=== PATIENT | male | born 1980 | race Caucasian/White ===

== ENCOUNTER 2020-09-10 22:17 | Inpatient (IN) | payer OTHER, SELFPAY ==
[2020-09-10 22:33] VITALS: BP 140/82; PULSE 61; RESP 14; TEMP 36.3; O2SAT 98; BMI 31.4
[2020-09-10 23:38] VITALS: BP 131/90; PULSE 77; RESP 18; TEMP 36.6; O2SAT 99
--- NOTE | 2020-09-10 23:55 | ED_ITS ---
HPI - Abdominal Pain General Chief Complaint: Abdominal Pain Stated Complaint: ?UTI Time Seen by Provider: 09/10/20 23:44 Source: patient Mode of arrival: ambulatory Limitations: no limitations History of Present Illness HPI narrative: 40 years old male history of kidney stones, presented today with right-sided abdominal pain for 1 day, no nausea no vomiting, patient describes the pain as constant pain in the right flank area with fluctuation right now pain is 8/10, pain reviewed Ca down to the right lower quadrant/right groin area, no other associated symptoms with the pain, nothing relieves the pain or make it better, nothing worsens the pain pain, describes the pain as a stabbing pain Related Data Home Medications Medication Instructions Recorded Confirmed No Known Home Meds 09/10/20 09/10/20 Allergies Allergy/AdvReac Type Severity Reaction Status Date / Time No Known Allergies Allergy Verified 09/10/20 23:35 [No Known Allergies*] Review of Systems Review of Systems All other systems are reviewed and are negative Constitutional: Reports as per HPI and Reports no additional constitutional complaints Eyes: Reports as per HPI and Reports no additional eye complaints Reports system reviewed and no additional complaints, except as documented Cardiovascular: Reports as per HPI and Reports no additional cardiovascular complaints Respiratory: Reports as per HPI and Reports no additional respiratory complaints Gastrointestinal: Reports as per HPI and Reports no additional gastrointestinal complaints Genitourinary: Reports no additional female genitourinary complaints Musculoskeletal: Reports no additional musculoskeletal complaints Skin/Breast: Reports system reviewed and no additional complaints, except as docu Psychiatric: Reports no additional psychiatric complaints Endocrine: Reports no additional endocrine complaints Hematologic/Lymphatic: Reports no additional hematologic/lymphatic complaints Allergic/Immunologic: Reports no additional allergic/immunologic complaints Reports system reviewed and no additional complaints, except as documented and Reports Abnormal speech present Physical Exam Vital Signs: Vital Signs: Last Vital Signs Temp 97.9 F 09/10/20 23:38 Pulse 77 09/10/20 23:38 Resp 18 09/11/20 00:17 BP 131/90 H 09/10/20 23:38 Pulse Ox 99 09/10/20 23:38 Body Mass Index 31.4 Vital signs have been reviewed as normal and appeared to be correct. Hypertensive. Heart rate normal. Respiration rate normal. Temperature normal. Oxygen saturation normal. Appearance: Alert. Oriented X3. No acute distress. Head: Normal external exam. Normocephalic. Atraumatic. No Robert signs noted. No raccoon eyes noted Eyes: PERRLA. EOMI. Conjunctiva and sclera normal. Eyelids normal. ENT: EAC normal. TM's Normal. Pharynx normal. Uvula midline. Moist mucous membranes. No trismus noted. No drooling noted. No muffled voice noted. Neck: Normal inspection. Neck supple. FROM. No adenopathy. Thyroid Normal. No meningeal signs. No neck mass noted. CVS: Normal heart rate and rhythm. Heart sound normal. No murmurs noted. Pulses normal throughout. Respiratory: No respiratory distress. Painless inspiration. Breath sounds normal. No wheezes/rales/rhonchi noted. Chest nontender. No accessory muscle usage noted or decreased air movement noted. Abdomen: Soft, tenderness to the right lower quadrant area, no rebound tenderness, no guarding. Bowel sounds normal in all 4 quadrants. No distention noted. No organomegaly noted. No visible injury noted. Back: Mild right CVA tenderness. Full range of motion noted. Skin: Skin warm and dry. Normal skin color. Normal skin turgor. No rashes/lesions/lacerations noted. Extremities: No lower extremity edema. Extremities exhibit normal range of motion. Extremities nontender. Neuro: Oriented X 3. No motor deficit. No sensory deficit. Reflexes normal. Course Course Course Narrative: Assessment and plan. 40-year-old male with history of kidney stone presented with right flank pain radiating to the right groin area, CT showed 5 mm obstructing stone in the distal right ureter with hydronephrosis, UA is showing mild infection, patient is not meeting criteria for sepsis, with leukocytosis of 18,000, patient will be given Levaquin for the infection. Patient do not meet criteria for severe sepsis. The case discussed with . MDM - Abdominal Pain Lab Data Result diagrams: 09/11/20 00:12 09/11/20 00:12 Labs: Lab Results 09/11/20 09/11/20 09/11/20 Range/Units 00:12 00:12 00:12 WBC 18.0 H (4.8-10.8) X10*3/uL RBC 4.85 (4.60-5.80) X10*6/uL Hgb 14.8 (14.0-18.0) g/dl Hct 42.4 (42-52) % MCV 87.4 (80-98) fL MCH 30.5 (27.0-33.0) pg MCHC 34.9 (31.0-36.0) g/dl RDW 12.4 (11.0-16.0) % Plt Count 296 (160-400) X10*3/uL MPV 8.7 L (9.4-12.4) fL Immature Gran % (Auto) 0.6 H (0.0-0.4) % Neut % (Auto) 81.4 H (45-73) % Lymph % (Auto) 13.0 L (20-40) % [place] % (Auto) 3.6 (2-11) % Eos % (Auto) 1.1 (0-4) % Baso % (Auto) 0.3 (0-2) % Lymph # (Auto) 2.3 (1.2-4.9) X10*3/uL [place] # (Auto) 0.6 (0.1-1.2) X10*3/uL Eos # (Auto) 0.2 (0.0-0.4) X10*3/uL Baso # (Auto) 0.1 (0.0-0.2) X10*3/uL Abs Immat Gran (auto) 0.11 H (0.00-0.03) X10*3/uL Absolute Neuts (auto) 14.7 H (2.0-8.3) X10*3/uL Absolute Nucleated RBC 0.000 (0.0-0.012) X10*3/uL Nucleated RBC % (auto) 0.0 (0.0-0.2) /100WBC Sodium 138 (135-145) mmol/L Potassium 4.4 (3.3-5.1) mmol/l Chloride 100 (96-108) mmol/L Carbon Dioxide 29 (22-29) mmol/L Anion Gap 13 (12-20) BUN 14 (9-16) mg/dL Creatinine 1.05 (0.5-1.4) mg/dL Estim Creat Clear Calc 103.9 Estimated GFR > 60 Random Glucose 143 H (60-115) mg/dL Calcium 9.3 (8.4-10.2) mg/dL Total Bilirubin 0.4 (0.0-1.0) mg/dL Direct Bilirubin 0.2 (0.0-0.5) mg/dL AST 21 (5-37) U/L ALT 23 (0-40) U/L Alkaline Phosphatase 91 (39-117) U/L Total Protein 7.7 (6.5-8.0) g/dL Albumin 5.0 (3.5-5.0) g/dL Lipase 15 (8-78) U/L Urine Color YELLOW Urine Appearance HAZY Urine pH 5.0 (5.0-8.0) Ur Specific [place] >= 1.030 H (1.005-1.025) Urine Protein TRACE (NEG-TRACE) MG/DL Urine Glucose (UA) NEG (NEG) MG/DL Urine Ketones NEG (NEG) MG/DL Urine Blood 3+ H (NEG) Urine Nitrite POS H (NEG) Ur Leukocyte Esterase NEG (NEG) Urine RBC 30-49 H (0) /HPF Urine WBC 10-14 H (0-4) /HPF Ur Squamous Epith Cells 1+ /LPF Calcium Oxalate Crystal 1+ /LPF Urine Bacteria 2+ /LPF Hyaline Casts 1-4 /LPF Granular Casts 1-4 /LPF Urine Mucus 2+ /LPF Discharge Plan Discharge Clinical Impression: Kidney stone on right side, Acute UTI, Leukocytosis Patient Disposition: Admitted As Inpatient Prescriptions: No Action No Known Home Meds RF: 0 PMFSH Past Medical History Medical History (Updated 09/11/20 @ 01:56 by Michael Lakhani MD) Dislocated shoulder Kidney calculi Social History Social History Alcohol intake: never Smoking Status: Current every day smoker Substance Use Type: Marijuana Substance Use Frequency: Daily Last Used Substance: Days (ago) Any prior treatment program specific to substance use: No Advance Directives: No Advance Directives Information Provided: No
--- NOTE | 2020-09-11 | CT_ITS ---
EXAMINATION: CT ABDOMEN AND PELVIS WITHOUT CONTRAST CLINICAL INFORMATION: Right-sided flank pain. COMPARISON: None. TECHNIQUE: Contiguous axial thin section helical images of the abdomen and pelvis were performed without oral or IV contrast. The data set was reformatted in the coronal and sagittal planes and reviewed on an independent workstation. DLP: 666 mGy-cm. FINDINGS: There is an 8 mm nodule within the right lung base within or adjacent to the right major fissure best demonstrated on image 24/818. The visualized lung bases are otherwise clear. The visualized portions of the heart are unremarkable. The liver is of normal size and attenuation without focal lesions nor intrahepatic biliary ductal dilation. A normal gallbladder is identified. There is no wall thickening or discernible pericholecystic fluid. The spleen, pancreas, adrenal glands are unremarkable. Both kidneys are of normal size and attenuation. There is right grade 2-3 hydroureteronephrosis secondary to an obstructive 5 mm right UVJ calculus. There is no abdominal free fluid. There is neither mesenteric nor retroperitoneal lymphadenopathy. There is diverticulosis without evidence of diverticulitis. Otherwise, unremarkable unopacified loops of small and large bowel are identified. A normal appendix is identified. There is no pelvic free fluid. The urinary bladder is unremarkable. There is neither pelvic nor inguinal lymphadenopathy. Bone windows: Neither sclerotic nor lytic bone lesions are identified. CT/CT abdomen pelvis wo con IMPRESSION: Right grade 2-3 hydroureteronephrosis secondary to a 5 mm obstructive right UVJ calculus. Diverticulosis without evidence of diverticulitis. 8 mm right lung base interfissural nodule. Various management parameters for solitary pulmonary nodules are in the literature. According to the Fleischner Society, recommendations for pulmonary nodules are as follows: Nodule size < or = to 4 mm in LOW RISK PATIENTS: No follow up needed. Nodule size < or = to 4 mm in HIGH RISK PATIENTS: Follow up CT at 12 months; if unchanged, no further follow up. Nodule size > 4-6 mm in LOW RISK PATIENTS: Follow up CT at 12 months; if unchanged, no further follow up. Nodule size > 4-6 mm in HIGH RISK PATIENTS: Initial follow up CT at 6-12 months, then at 18-24 months if no change. Nodule size > 6-8 mm in LOW RISK PATIENTS: Initial follow up CT at 6-12 months, then at 18-24 months if no change. Nodule size > 6-8 mm in HIGH RISK PATIENTS: Initial follow up CT at 3-6 months, then 9-12 months and 24 months if no change. Nodule size > 8 mm in LOW RISK PATIENTS: Follow up CT at around 3, 9, and 24 months, dynamic contrast-enhanced CT, PET, and/or biopsy. Nodule size > 8 mm in HIGH RISK PATIENTS: Same as for low-risk patients. Automated exposure control (Care Dose) Adjustment of the mA and/or kv according to patient size (this includes techniques or standardized protocols for targeted exams where dose is matched to indication / reason for exam; i.e. extremities or head).
[2020-09-11 00:17] VITALS: RESP 18
[2020-09-11] MEDS: HYDROmorphone HCl 1 MG/ML SYRINGE IVPUSH (00:17)
[2020-09-11] MEDS: 0.9 % Sodium Chloride 1,000 ML 999 ML IVCONT ×2 (00:17→03:19)
[2020-09-11] MEDS: Ketorolac Tromethamine 15 MG/ML VIAL IV ×2 (00:17→05:46)
[2020-09-11 00:23] LABS: Basophils Absolute Auto 0.1 X10*3/uL (0.0-0.2); Basophils Percent Auto 0.3 % (0-2); Eosinophils Absolute Auto 0.2 X10*3/uL (0.0-0.4); Eosinophils Percent Auto 1.1 % (0-4); Hematocrit 42.4 % (42-52); Hemoglobin 14.8 g/dl (14.0-18.0); Imm Gran Abs Auto 0.11 X10*3/uL (0.00-0.03); Imm Gran Pct Auto 0.6 % (0.0-0.4); Lymphocytes Absolute Auto 2.3 X10*3/uL (1.2-4.9); MANUAL DIFF FLAG NO; Mean Corpuscular HGB Conc 34.9 g/dl (31.0-36.0); Mean Corpuscular Hemoglobin 30.5 pg (27.0-33.0); Mean Corpuscular Volume 87.4 fL (80-98); Mean Platelet Volume 8.7 fL (9.4-12.4); Monocytes Absolute Auto 0.6 X10*3/uL (0.1-1.2); Monocytes Percent Auto 3.6 % (2-11); Neutrophils Absolute Auto 14.7 X10*3/uL (2.0-8.3); Neutrophils Percent Auto 81.4 % (45-73); Platelet Count 296 X10*3/uL (160-400); Red Blood Count 4.85 X10*6/uL (4.60-5.80); Red Cell Distribution Width 12.4 % (11.0-16.0)
[2020-09-11 00:36] LABS: Glucose Urine UA NEG (NEG); Leukocyte Esterase Urine NEG (NEG); Nitrite Urine POS (NEG); Specific Gravity - Urine >= 1.030 (1.005-1.025); Urine Blood 3+ (NEG); Urine Ketones NEG (NEG); Urine Protein TRACE MG/DL (NEG-TRACE)
[2020-09-11 00:42] LABS: Appearance Urine HAZY; Color Urine YELLOW
[2020-09-11 00:45] LABS: Alanine Aminotransferase 23 U/L (0-40); Alkaline Phosphatase 91 U/L (39-117); Anion Gap 13 (12-20); Aspartate Amino Transferase 21 U/L (5-37); Bilirubin Direct 0.2 mg/dL (0.0-0.5); Bilirubin Total 0.4 mg/dL (0.0-1.0); Blood Urea Nitrogen 14 mg/dL (9-16); Calcium 9.3 mg/dL (8.4-10.2); Carbon Dioxide 29 mmol/L (22-29); Chloride 100 mmol/L (96-108); Creatinine Clr Calc Pharmacy 103.9; Estimated Glomerular Filt Rate > 60; Glucose Random 143 mg/dL (60-115); Lipase 15 U/L (8-78); Potassium 4.4 mmol/l (3.3-5.1); Sodium 138 mmol/L (135-145); Total Protein 7.7 g/dL (6.5-8.0)
[2020-09-11 00:49] LABS: RBC Urine 30-49 /HPF (0)
[2020-09-11 00:50] LABS: Bacteria Urine 2+ /LPF; Calcium Oxalate Crystals Urine 1+ /LPF; Mucus Urine 2+ /LPF; Squamous Epithelial Cell Urine 1+ /LPF
[2020-09-11 02:00] VITALS: BP 122/72; PULSE 98; RESP 18; O2SAT 100
[2020-09-11 02:38] LABS: Lactic Acid 1.5 mmol/L (0.5-2.0)
[2020-09-11] MEDS: levoFLOXacin 750 MG TABLET PO (02:43)
[2020-09-11 02:53] LABS: COVID-19 Test Negative (Negative)
[2020-09-11] MEDS: cefTRIAXone sodium 1 GM in 0.9 % Sodium Chloride 50 ML IV (03:18)
[2020-09-11] MEDS: Tamsulosin HCL 0.4 MG CAPSULE 0.8 MG PO (03:19)
[2020-09-11 04:00] VITALS: BP 111/65; PULSE 72; RESP 18; TEMP 36.8; O2SAT 99
--- NOTE | 2020-09-11 05:51 | PM.IMHP ---
History of Present Illness Date of Service: 09/11/20 Chief Complaint: Kidney stones pain Id this is a 40-year-old male with past medical history of kidney stones who presents to the hospital with right abdominal pain radiating to the groin. Patient reports that his pain started earlier in the day, crampy, 10/10, associated with nausea, dysuria and urgency. Patient reports he has history of kidney stone and this feels similar. He has no pain on the left side. No fever or chills, no headache, change in vision, chest pain, shortness of breath, no diarrhea constipation. His urinary symptoms also started about a day ago and that include dysuria, urgency. On arrival to the ED vitals are significant for temp of 97.4?, pulse rate of 61, respiratory rate of 14, blood pressure 140/82, oxygen satting 98% on room air Labs are significant for WBC count of 18.0, hemoglobin of 14.8, hematocrit 42.4, CMP shows sodium of 138, potassium 4.4 otherwise unremarkable. UA is positive for nitrites, and WBC. Patient's abdominal/pelvic CT shows right grade 2-3 hydroureteronephrosis secondary to a 5 mm obstructive right UVJ calculus. 8 mm right lung base enter fistular nodule that will need to be followed of in the near future Past medical history: Kidney stones Past surgical history: Kidney stone removal, shoulder surgery Family history: Alcohol in father Social history: Comes from home, smokes about 1 pack per day, denies alcohol or illicit drugs Review of Systems Review of Systems: Yes all other systems are reviewed and are negative [facility] Medical History Dislocated shoulder Kidney calculi Social History Alcohol intake: never Smoking Status: Current every day smoker Substance Use Type: Marijuana Substance Use Frequency: Daily Last Used Substance: Days (ago) Any prior treatment program specific to substance use: No Advance Directives: No Advance Directives Information Provided: No Meds Allergies Allergy/AdvReac Type Severity Reaction Status Date / Time No Known Allergies Allergy Verified 09/10/20 23:35 [No Known Allergies*] Home Medications Medication Instructions Recorded Confirmed Type No Known Home Meds 09/10/20 09/10/20 History Physical Exam Vital Signs and Narrative: Vital Signs: Last Vital Signs Temp 98.2 F 09/11/20 04:00 Pulse 72 09/11/20 04:00 Resp 18 09/11/20 04:00 BP 111/65 09/11/20 04:00 Pulse Ox 99 09/11/20 04:00 Body Mass Index 31.4 Const: General: cooperative and no acute distress Orientation/consciousness: patient oriented x3 Eyes: General: appearance normal, both eyes and all related structures Resp: Effort & Inspection: normal respiratory effort and able to speak in complete sentences Cardio: Rate: regular rate Rhythm: regular rhythm GI: Palpation (GI): Soft to palpation Auscultation: normal bowel sounds : Other: Right CVA tenderness Skin: General skin exam: no rashes or lesions noted Neuro: General: patient oriented x3 Cognition (Neuro): normal cognition Extrem: General: Yes normal to inspection and Yes no pedal edema Results Labs CBC and Chem 7: 09/11/20 00:12 09/11/20 00:12 Labs: Laboratory Results - last 24 hr 09/11/20 09/11/20 09/11/20 00:12 00:12 00:12 MCV 87.4 MCH 30.5 MCHC 34.9 RDW 12.4 Plt Count 296 MPV 8.7 L Immature Gran % (Auto) 0.6 H Neut % (Auto) 81.4 H Lymph % (Auto) 13.0 L [place] % (Auto) 3.6 Eos % (Auto) 1.1 Baso % (Auto) 0.3 Lymph # (Auto) 2.3 [place] # (Auto) 0.6 Eos # (Auto) 0.2 Baso # (Auto) 0.1 Abs Immat Gran (auto) 0.11 H Absolute Neuts (auto) 14.7 H Absolute Nucleated RBC 0.000 Nucleated RBC % (auto) 0.0 Anion Gap 13 Estim Creat Clear Calc 103.9 Estimated GFR > 60 Random Glucose 143 H Lactic Acid Calcium 9.3 Total Bilirubin 0.4 Direct Bilirubin 0.2 AST 21 ALT 23 Alkaline Phosphatase 91 Total Protein 7.7 Albumin 5.0 Lipase 15 Urine Color YELLOW Urine Appearance HAZY Urine pH 5.0 Ur Specific [place] >= 1.030 H Urine Protein TRACE Urine Glucose (UA) NEG Urine Ketones NEG Urine Blood 3+ H Urine Nitrite POS H Ur Leukocyte Esterase NEG Urine RBC 30-49 H Urine WBC 10-14 H Ur Squamous Epith Cells 1+ Calcium Oxalate Crystal 1+ Urine Bacteria 2+ Hyaline Casts 1-4 Granular Casts 1-4 Urine Mucus 2+ COVID-19 (ZIGGY) COVID-19 Clin Com 09/11/20 09/11/20 02:09 02:09 MCV MCH MCHC RDW Plt Count MPV Immature Gran % (Auto) Neut % (Auto) Lymph % (Auto) [place] % (Auto) Eos % (Auto) Baso % (Auto) Lymph # (Auto) [place] # (Auto) Eos # (Auto) Baso # (Auto) Abs Immat Gran (auto) Absolute Neuts (auto) Absolute Nucleated RBC Nucleated RBC % (auto) Anion Gap Estim Creat Clear Calc Estimated GFR Random Glucose Lactic Acid 1.5 Calcium Total Bilirubin Direct Bilirubin AST ALT Alkaline Phosphatase Total Protein Albumin Lipase Urine Color Urine Appearance Urine pH Ur Specific [place] Urine Protein Urine Glucose (UA) Urine Ketones Urine Blood Urine Nitrite Ur Leukocyte Esterase Urine RBC Urine WBC Ur Squamous Epith Cells Calcium Oxalate Crystal Urine Bacteria Hyaline Casts Granular Casts Urine Mucus COVID-19 (ZIGGY) Negative COVID-19 Clin Com See Note Imaging Radiologist's Impressions: Impressions Abdomen/Pelvis CT 09/11/20 00:00 IMPRESSION: Right grade 2-3 hydroureteronephrosis secondary to a 5 mm obstructive right UVJ calculus. Diverticulosis without evidence of diverticulitis. 8 mm right lung base interfissural nodule. Various management parameters for solitary pulmonary nodules are in the literature. According to the Fleischner Society, recommendations for pulmonary nodules are as follows: Nodule size < or = to 4 mm in LOW RISK PATIENTS: No follow up needed. Nodule size < or = to 4 mm in HIGH RISK PATIENTS: Follow up CT at 12 months; if unchanged, no further follow up. Nodule size > 4-6 mm in LOW RISK PATIENTS: Follow up CT at 12 months; if unchanged, no further follow up. Nodule size > 4-6 mm in HIGH RISK PATIENTS: Initial follow up CT at 6-12 months, then at 18-24 months if no change. Nodule size > 6-8 mm in LOW RISK PATIENTS: Initial follow up CT at 6-12 months, then at 18-24 months if no change. Nodule size > 6-8 mm in HIGH RISK PATIENTS: Initial follow up CT at 3-6 months, then 9-12 months and 24 months if no change. Nodule size > 8 mm in LOW RISK PATIENTS: Follow up CT at around 3, 9, and 24 months, dynamic contrast-enhanced CT, PET, and/or biopsy. Nodule size > 8 mm in HIGH RISK PATIENTS: Same as for low-risk patients. Automated exposure control (Care Dose) Adjustment of the mA and/or kv according to patient size (this includes techniques or standardized protocols for targeted exams where dose is matched to indication / reason for exam; i.e. extremities or head). Assessment and Plan (1) Kidney stone on right side: Status: Acute (2) Acute UTI: Status: Acute This is a 40-year-old male with past medical history of nephrolithiasis returned with the same on the right side. # right obstructive UVJ nephrolithiasis - will start IV fluids, urology is consulted and plans and possible intervention in a.m. - treat UTI - Pain management # UTI - has urgency, dysuria, UA is positiv for nitrites and WBC - will start ceftriaxone - follow blood and urine cultures # 8 mm lung nodule - patient is a heavy smoker for many years, and this nodule needs to be followed up within the next 3-6 months upon discharge DVT prophylaxis: Lovenox
[2020-09-11 08:10] VITALS: BP 116/62; PULSE 87; RESP 18; TEMP 36.7; O2SAT 96
[2020-09-11] MEDS: Enoxaparin Sodium 40 MG/0.4 ML SYRINGE SUBCUT (08:15)
[2020-09-11] MEDS: oxyCODONE HCl Immed Release 5 MG TABLET PO (08:16)
[2020-09-11] MEDS: 0.9 % Sodium Chloride Flush 3 ML SYRINGE IVFLUSH (08:16)
--- NOTE | 2020-09-11 09:55 | P.DS_ITS ---
DS: Providers Provider Date of admission: 09/11/20 02:21 Primary care physician: Unknown Physician Consults: 09/11/20 03:44 Consult to Urology Routine Consulting Provider: Abdelrahman Mitchell III Reason for consultation: nephrolithiasis Has provider been notified: Yes DS: Diagnosis Discharge Diagnosis (1) Kidney stone on right side: Status: Acute (2) Acute UTI: Status: Acute DS: Medications Discharge Medications Home Medications: Home Medications Medication Instructions Recorded Confirmed No Known Home Meds 09/10/20 09/10/20 Previous Rx's Medication Instructions Recorded acetaminophen [Tylenol] 650 mg PO Q6H PRN #20 tab 09/11/20 cefuroxime axetil 250 mg PO Q12H #14 tab 09/11/20 tamsulosin [Flomax] 0.4 mg PO DAILY #7 cap 09/11/20 DS: Summary Hospital Course Hospital Course: 40-year-old male with past medical history of kidney stones who presents to the hospital with right abdominal pain radiating to the groin. Patient reports that his pain started earlier in the day, crampy, 10/10, associated with nausea, dysuria and urgency. Patient reports he has history of kidney stone and this feels similar. He has no pain on the left side. No fever or chills, no headache, change in vision, chest pain, shortness of breath, no diarrhea constipation. His urinary symptoms also started about a day ago and that include dysuria, urgency. On arrival to the ED vitals are significant for temp of 97.4?, pulse rate of 61, respiratory rate of 14, blood pressure 140/82, oxygen satting 98% on room air Labs are significant for WBC count of 18.0, hemoglobin of 14.8, hematocrit 42.4, CMP shows sodium of 138, potassium 4.4 otherwise unremarkable. UA is positive for nitrites, and WBC. Patient's abdominal/pelvic CT shows right grade 2-3 hydroureteronephrosis secondary to a 5 mm obstructive right UVJ calculus. 8 mm right lung base enter fistular nodule that will need to be followed of in the near future Past medical history: Kidney stones. Hospital Course problem palma section:Patient given nephrolithiasis as well as acute UTI, blood culture and urine cultures sent, patient was started on IV antibiotic and pain control, urology was consulted-but patient decided he wants to sign against medical advice risks of leaving against medical advise discussed with him in detail including sepsis, renal failure and even - he still wants to leave against medical advice. Staff was present during the co nversation. Antibiotic Ceftin and Flomax as well as pain medication prescription given. In addition patient was told to go to nearest emergency room for further management and also given the option to come back to nearest emergency room . Is alert oriented x3 and understands and still wants to leave AMA . Above management discussed with the patient in detail length she understand and in agreement with the above plan, time spent 50 minutes and 50% time spent on counseling. Significant findings: As above. Procedures performed: None. Treatment and response: As above. Complications: None. Time Spent with Patient Time attestation: Total time spent providing and/or coordinating discharge services: Physical Exam Vital Signs: Vital Signs: Last Vital Signs Temp 98.1 F 09/11/20 08:10 Pulse 87 09/11/20 08:10 Resp 18 09/11/20 08:10 BP 116/62 09/11/20 08:10 Pulse Ox 96 09/11/20 08:10 Body Mass Index 31.4 Physical exam: Constitutional: Seems anxious wants to leave Cvs: rrr, [id number] , no murmur res: clear to auscultation ,no rhonchii or wheezing abd: no rebound or guarding ,nt, bs present. : mild right cva tenderness ext pulses present , no cyanosis neuro: axo3 , nonfocal. DS: Data Data Completed and Pending Labs on day of discharge: 09/10/20 23:44 Basic Metabolic Panel Stat Complete Blood Count Auto Diff Stat Lipase Stat Liver Panel Stat 09/10/20 23:45 0.9 % Sodium Chloride [Ns] 1,000 ml IVCONT 999 mls/hr 09/10/20 23:46 Morphine Sulfate 1 mg IVPUSH ONCE ONE 09/10/20 23:52 HYDROmorphone HCl [Dilaudid] 1 mg IVPUSH ONCE ONE 09/11/20 00:00 CT abdomen pelvis wo con Stat 09/11/20 01:34 levoFLOXacin [Levaquin] 750 mg PO ONCE ONE 09/11/20 01:38 levoFLOXacin/D5W [Levaquin] 750 mg in 150 ml IV ONCE 09/11/20 01:52 Consult Rx Perform Med Rec 1 each MISCELLANE ONCE PRN 09/11/20 02:00 0.9 % Sodium Chloride [Ns] 1,000 ml IVCONT 999 mls/hr 09/11/20 02:09 COVID-19 ID NOW ([place]) Stat Lactic Acid Stat 09/11/20 02:13 Transfer Order Routine 09/11/20 02:53 Tamsulosin HCL [Flomax] 0.8 mg PO ONCE ONE dexAMETHasone Sod Phosphate/PF [Decadron] 10 mg IVPUSH ONCE ONE 09/11/20 02:57 cefTRIAXone sodium [Rocephin] 1 gm 0.9 % Sodium Chloride [Ns] 50 ml IV ONCE 09/11/20 03:08 cefTRIAXone sodium [Rocephin] 1 gm .ROUTE .STK-MED ONE Laboratory Last Values WBC 18.0 X10*3/uL (4.8-10.8) H 09/11/20 00:12 RBC 4.85 X10*6/uL (4.60-5.80) 09/11/20 00:12 Hgb 14.8 g/dl (14.0-18.0) 09/11/20 00:12 Hct 42.4 % (42-52) 09/11/20 00:12 MCV 87.4 fL (80-98) 09/11/20 00:12 MCH 30.5 pg (27.0-33.0) 09/11/20 00:12 MCHC 34.9 g/dl (31.0-36.0) 09/11/20 00:12 RDW 12.4 % (11.0-16.0) 09/11/20 00:12 Plt Count 296 X10*3/uL (160-400) 09/11/20 00:12 MPV 8.7 fL (9.4-12.4) L 09/11/20 00:12 Immature Gran % (Auto) 0.6 % (0.0-0.4) H 09/11/20 00:12 Neut % (Auto) 81.4 % (45-73) H 09/11/20 00:12 Lymph % (Auto) 13.0 % (20-40) L 09/11/20 00:12 [place] % (Auto) 3.6 % (2-11) 09/11/20 00:12 Eos % (Auto) 1.1 % (0-4) 09/11/20 00:12 Baso % (Auto) 0.3 % (0-2) 09/11/20 00:12 Lymph # (Auto) 2.3 X10*3/uL (1.2-4.9) 09/11/20 00:12 [place] # (Auto) 0.6 X10*3/uL (0.1-1.2) 09/11/20 00:12 Eos # (Auto) 0.2 X10*3/uL (0.0-0.4) 09/11/20 00:12 Baso # (Auto) 0.1 X10*3/uL (0.0-0.2) 09/11/20 00:12 Abs Immat Gran (auto) 0.11 X10*3/uL (0.00-0.03) H 09/11/20 00:12 Absolute Neuts (auto) 14.7 X10*3/uL (2.0-8.3) H 09/11/20 00:12 Absolute Nucleated RBC 0.000 X10*3/uL (0.0-0.012) 09/11/20 00:12 Nucleated RBC % (auto) 0.0 /100WBC (0.0-0.2) 09/11/20 00:12 Sodium 138 mmol/L (135-145) 09/11/20 00:12 Potassium 4.4 mmol/l (3.3-5.1) 09/11/20 00:12 Chloride 100 mmol/L (96-108) 09/11/20 00:12 Carbon Dioxide 29 mmol/L (22-29) 09/11/20 00:12 Anion Gap 13 (12-20) 09/11/20 00:12 BUN 14 mg/dL (9-16) 09/11/20 00:12 Creatinine 1.05 mg/dL (0.5-1.4) 09/11/20 00:12 Estim Creat Clear Calc 103.9 09/11/20 00:12 Estimated GFR > 60 09/11/20 00:12 Random Glucose 143 mg/dL (60-115) H 09/11/20 00:12 Lactic Acid 1.5 mmol/L (0.5-2.0) 09/11/20 02:09 Calcium 9.3 mg/dL (8.4-10.2) 09/11/20 00:12 Total Bilirubin 0.4 mg/dL (0.0-1.0) 09/11/20 00:12 Direct Bilirubin 0.2 mg/dL (0.0-0.5) 09/11/20 00:12 AST 21 U/L (5-37) 09/11/20 00:12 ALT 23 U/L (0-40) 09/11/20 00:12 Alkaline Phosphatase 91 U/L (39-117) 09/11/20 00:12 Total Protein 7.7 g/dL (6.5-8.0) 09/11/20 00:12 Albumin 5.0 g/dL (3.5-5.0) 09/11/20 00:12 Lipase 15 U/L (8-78) 09/11/20 00:12 Urine Color YELLOW 09/11/20 00:12 Urine Appearance HAZY 09/11/20 00:12 Urine pH 5.0 (5.0-8.0) 09/11/20 00:12 Ur Specific [place] >= 1.030 (1.005-1.025) H 09/11/20 00:12 Urine Protein TRACE MG/DL (NEG-TRACE) 09/11/20 00:12 Urine Glucose (UA) NEG MG/DL (NEG) 09/11/20 00:12 Urine Ketones NEG MG/DL (NEG) 09/11/20 00:12 Urine Blood 3+ (NEG) H 09/11/20 00:12 Urine Nitrite POS (NEG) H 09/11/20 00:12 Ur Leukocyte Esterase NEG (NEG) 09/11/20 00:12 Urine RBC 30-49 /HPF (0) H 09/11/20 00:12 Urine WBC 10-14 /HPF (0-4) H 09/11/20 00:12 Ur Squamous Epith Cells 1+ /LPF 09/11/20 00:12 Calcium Oxalate Crystal 1+ /LPF 09/11/20 00:12 Urine Bacteria 2+ /LPF 09/11/20 00:12 Hyaline Casts 1-4 /LPF 09/11/20 00:12 Granular Casts 1-4 /LPF 09/11/20 00:12 Urine Mucus 2+ /LPF 09/11/20 00:12 COVID-19 (ZIGGY) Negative (Negative) 09/11/20 02:09 COVID-19 Clin Com See Note 09/11/20 02:09 Discharge Plan Discharge Patient Disposition: Left Against Medical Advice Referrals: Physician,Unknown [Primary Care Provider] - Discharge Medications: New tamsulosin [Flomax] 0.4 mg capsule 0.4 mg PO DAILY Qty: 7 RF: 0 acetaminophen [Tylenol] 325 mg tablet 650 mg PO Q6H PRN (Reason: fever or pain) Qty: 20 RF: 0 levofloxacin 750 mg tablet 750 mg PO DAILY Qty: 7 RF: 0 No Action No Known Home Meds RF: 0 Discharge Orders: Discharge Order (Routine); Ordered 09/11/20 Ordered By: Rubio Ricardo Diet: advance to usual diet Activity on Discharge: As tolerated Visit Report Forms: Patient Portal Discharge page Care Plan Goals: Patient given nephrolithiasis as well as acute UTI-wants to sign against medical advice risks of leaving against medical advise discussed with him in detail including sepsis, renal failure and even - he still wants to leave against medical advice. Staff was present during the conversation. Antibiotic Ceftin and Flomax as well as pain medication prescription given. In addition patient was told to go to nearest emergency room for further management and also given the option to come back to nearest emergency room . Is alert oriented x3 and understand the option. Health Concerns: As above. Plan of Treatment: As above.
== END 2020-09-11 10:20 | disposition left against medical advice (07) | DRG 690 ==
LOC: HO.ED 09-11 01:56 → HO.S3 09-11 03:16
PROVIDERS: Admitting Provider Internal Medicine; Emergency Provider Emergency Medicine; Visit Provider Internal Medicine
DX: N13.6 Pyonephrosis (principal); R91.1 Solitary pulmonary nodule; Z87.442 Personal history of urinary calculi; Z20.828 Contact with and (suspected) exposure to other viral communicable diseases; F17.210 Nicotine dependence, cigarettes, uncomplicated; Z71.6 Tobacco abuse counseling; Z79.899 Other long term (current) drug therapy
CPT/HCPCS: 36415; 74176; 80048; 80076; 81001; 83605; 83690; 85025; 87040; 87086; 87088; 87186; 87635; 96361; 96365; 96367; 96375; 99285; J0696; J1100; J1170; J1650; J1885

== ENCOUNTER 2021-05-07 11:07 | Emergency (ER) | payer MEDICAID, SELFPAY ==
--- NOTE | 2021-05-07 | ECG_ITS ---
Test Reason : ?STROKE Blood Pressure : / mmHG Vent. Rate : 064 BPM Atrial Rate : 064 BPM P-R Int : 136 ms QRS Dur : 090 ms QT Int : 440 ms P-R-T Axes : 017 017 018 degrees QTc Int : 453 ms Normal sinus rhythm Normal ECG No previous ECGs available Referred By: Stanton Easley Electronically Signed By:ARABLELA AUGUSTE
--- NOTE | ~2021-05-07 | CT_ITS ---
EXAMINATION: CT HEAD WITHOUT CONTRAST CLINICAL INFORMATION: Right-sided facial droop COMPARISON: None TECHNIQUE: Contiguous axial imaging was performed from the skull base to vertex without intravenous administration of contrast. This CT examination was performed using dose optimization techniques as appropriate, variously including the following: *Automated exposure control *Adjustment of mA and/or kV according to patient size (this includes techniques or standardized protocols for targeted exams where dose is matched to indication/reason for exam; i.e. extremities or head) *Use of iterative reconstruction technique DLP: 688 mGy-cm FINDINGS: There is no evidence of acute intracranial hemorrhage or territorial infarction. No abnormal mass effect or midline shift is seen. Wallace to white matter differentiation is well preserved. No extra-axial fluid collections are identified. The ventricles are normal in size. There is no abnormal attenuation within the brain parenchyma. The osseous structures and soft tissues are normal. The mastoid air cells and visualized portions of the paranasal sinuses are well aerated. CT/CT head/brain wo con IMPRESSION: No acute intracranial pathology.
[2021-05-07 11:27] VITALS: BP 126/86; PULSE 70; RESP 12; O2SAT 99; BMI 32.6
--- NOTE | 2021-05-07 11:41 | PC.NURSE ---
Pt's mom with hx TIA so mom encouraged pt here concerned of stroke vs. bells palsy. Dr. Butler aware and immediately in to see pt re: signficiant L facial droop while pt able to raise both eyebrows.
--- NOTE | 2021-05-07 11:42 | ED.NEUROSD ---
HPI - Neuro Symptoms/Deficit General Chief Complaint: Stroke Stated Complaint: facial droop Time Seen by Provider: 05/07/21 11:40 Source: patient Mode of arrival: ambulatory Limitations: no limitations History of Present Illness HPI Narrative: Patient no significant past medical history noticed night angle of the mouth droop since yesterday 07:00 no other weakness noted loss of protective sensation no vision changes no diplopia and no speech problem no difficulty in closing his eyes no difficulty in swallowing, no history of Boyer's palsy in the past Related Data Previous Rx's Medication Instructions Recorded acetaminophen 325 mg tablet 650 mg PO Q6H PRN #20 tab 09/11/20 (Tylenol) levofloxacin 750 mg tablet 750 mg PO DAILY #7 tab 09/11/20 tamsulosin 0.4 mg capsule (Flomax) 0.4 mg PO DAILY #7 cap 09/11/20 prednisone 20 mg tablet 60 mg PO DAILY #21 tab 05/07/21 valacyclovir 1 gram tablet 1,000 mg PO TID #21 tab 05/07/21 (Valtrex) Allergies Allergy/AdvReac Type Severity Reaction Status Date / Time No Known Allergies Allergy Verified 05/07/21 11:44 [No Known Allergies*] Review of Systems Review of Systems: Yes all other systems are reviewed and are negative PMFSH Past Medical History Medical History Dislocated shoulder Kidney calculi Social History Social History Alcohol intake: current Alcohol intake frequency: holidays/special occasions only Patient Tobacco Use Status: Current everyday Tobacco user Smoked in Last 30 Days: Yes Use of substances other than those prescribed or required for medical reasons: No Substance Use Type: Marijuana Advance Directives: Yes Advance Directives Information Provided: Yes Advance Directives on File: No Physical Exam Vital Signs: Vital Signs: Last Vital Signs Pulse 62 05/07/21 13:03 Resp 6 L 05/07/21 13:03 BP 126/82 05/07/21 13:03 Pulse Ox 98 05/07/21 13:03 Body Mass Index 32.6 Appearance: Alert. Oriented X3. No acute distress. Eyes: PERRLA, No Nystagmus ENT: Pharynx normal. Oral Mucosa moist Neck: Normal inspection. Neck supple. CVS: Normal heart rate and rhythm. Pulses normal. Respiratory: No respiratory distress. Equal air entry bilateral, no wheezing/rales/rhonchi Abdomen: Soft and nontender. Bowel sounds are present, no mass palpable, no CVA tenderness Skin: Skin warm and dry. Normal skin color. Normal skin turgor. Extremities: No lower extremity edema. No calf tenderness Neuro: Oriented X 3. No motor deficit. No sensory deficit.No cerebellar signs , slide droop of right angle of mouth. Sparing forehead and eyes MDM - Neuro Symptoms/Deficit MDM Narrative Medical decision making narrative: Patient with partial right Boyer's palsy CT scan head is negative for any acute pathology no history of Lyme disease no other major medical problems. Will start patient on Valtrex and prednisone and advised to follow neurologist if not better Lab Data Labs: Lab Results 05/07/21 Range/Units 12:25 POC Glucose 107 (60-115) mg/dL Discharge Plan Discharge Clinical Impression: Boyer's palsy Patient Disposition: Home, Self-Care Instructions: Boyer Palsy (ED) Additional Instructions: You have partial Boyer's palsy on the right side Take medication as advised Follow-up with neurologist if gets worse Prescriptions: New prednisone 20 mg tablet 60 mg PO DAILY Qty: 21 RF: 0 valacyclovir [Valtrex] 1 gram tablet 1,000 mg PO TID Qty: 21 RF: 0 No Action tamsulosin [Flomax] 0.4 mg capsule 0.4 mg PO DAILY Qty: 7 RF: 0 acetaminophen [Tylenol] 325 mg tablet 650 mg PO Q6H PRN (Reason: fever or pain) Qty: 20 RF: 0 levofloxacin 750 mg tablet 750 mg PO DAILY Qty: 7 RF: 0 Referrals: Maliha Flores MD [Physician] - 1 week Stand Alone Forms: Work/School Release Interventions: ED Discharge Assessment Last Done: 05/07/21 13:36 Discharge Date/Time: 05/07/21 13:37
[2021-05-07 12:30] LABS: Glucose, Whole Blood 107 mg/dL (60-115)
[2021-05-07 13:03] VITALS: BP 126/82; PULSE 62; RESP 6; O2SAT 98
[2021-05-07] MEDS: predniSONE 20 MG TABLET 60 MG PO (13:13)
== END 2021-05-07 13:37 | disposition home or self-care (01) ==
PROVIDERS: Emergency Provider Internal Medicine
DX: G51.0 Bell's palsy (principal); F17.210 Nicotine dependence, cigarettes, uncomplicated; F12.90 Cannabis use, unspecified, uncomplicated
CPT/HCPCS: 70450; 82947; 93005; 99284; 99285

== ENCOUNTER 2024-03-18 13:10 | Outpatient (AMB) | payer OTHER, SELFPAY ==
--- NOTE | 2024-03-18 13:11 | HO.SPINEOV ---
Intake Visit Reasons: thoracic radiculopathy Intake Note: Mr. Cervantes is here today c/o back pain. Spot Billing Clerk Required: No Allergies No Known Allergies [No Known Allergies*] Allergy (Verified 03/18/24 13:17) Assessment & Plan Assessment & Plan (1) Back pain: Code(s): M54.9 - Dorsalgia, unspecified Category: Medical (2) Lower extremity edema: Code(s): R60.0 - Localized edema Category: Medical Plan Dear Carlos, Thank you for referring Mr Cervantes to our office today. He is a very nice 43-year-old gentleman who presents to the office today for evaluation of back pain and a change in his posture that has been going on since June of last year. There does not appear to be any inciting event, he just noticed a difficult time standing up straight and back discomfort. Over the course of a few months this led to him almost having a completely flexed posture being twisted and bent forward. He does not have any pain shooting down his legs. He ultimately underwent lumbar MRI and thoracic MRI which showed some mild changes in spine from the standpoint of disc spaces etc.. No cord compression or nerve impingement seen. He came to us today for evaluation of his scoliotic curvature and back pain. He currently takes Aleve and Tylenol to help with the pain. He smokes marijuana at night as well to help him sleep. The only thing he has noticed over the course of the last year more is that he is developed significant bilateral lower extremity edema. He is reached out to his primary care physician's few times about this but has not gotten any answers. PMH: Left shoulder surgery and as mentioned he is developed bilateral lower extremity edema of unclear cause. Social hx: He smokes about 10 cigarettes a day, he smokes marijuana at night and does not use any alcohol. Medications: Bupropion, Aleve and Tylenol Allergies: None Physical exam: He is awake alert oriented no acute distress, he has a significant curve to his spine and stands at about a 45 degree angle with his right shoulder turned downwards. It is not clear to me that there may be some atrophy on the right paraspinal musculature. This could also be just the twisting of the spine and I am seeing it in an asymmetric position. His lower extremity strength is full in his reflexes are normal. He does have 2+ edema in both of his legs with significant vascular changes with brownish discoloration of the skin from the ankles all the way up to the mid calf. Imaging review: He has an x-ray and an MRI done at [facility]. There is an MRI of the thoracic and lumbar as well as x-rays. These show some extn-ev-thidmeec degenerative changes in the lumbar spine with what is basically a normal thoracic spine steady. There is a subtle levoscoliosis on his x-rays from October which were done in the supine position. I did standing x-rays on him today and on the AP view I can see a significant increase in the scoliotic curvature in the vertical position. I do not see any instability on flexion-extension view. Impression: 43-year-old male presents for evaluation of altered posture with a hyperflexed position and leftward rotation with back pain and it clear scoliotic curvature seen on his imaging. What is strange is that this happened very rapidly. It is unusual to see us scoliosis develop over the course of a few months. I am wondering if this may not be some kind of dystonia. He does have the x-ray showing the scoliotic deformity. I am going to talk to Dr. Laird to see if this is something he thinks is amenable to surgery or if he needs to see a neurologist 1st to exclude dystonia. Once I have a chance to speak with Dr. Laird I will call the patient back in finalize the plan. Also, I will refer him to vascular because he has been having swelling of both of his feet, ankles and calves with discoloration of the skin turning brown. I think this suggests that he has chronic venous stasis but this also happened rapidly and I think he should at least see somebody about potential cause of this. It seems unusual and gentleman his age who has not significantly overweight. Thank you for allowing us to care for your patient. The total time spent with this visit with this patient was 45 minutes reviewing history, physical exam, lumbar and thoracic imaging review, and implementation of treatment plan or further diagnostic testing Edgardo Laird MD,PhD [facility] Orders: Orders XR lumbar spine 4V min Today M54.9 - Dorsalgia, unspecified XR thoracic spine 2V Today M54.9 - Dorsalgia, unspecified Referrals Vascular Surgery Referral R60.0 - Localized edema Coding Level of Care Code New Pt Level 4 (14664) Diagnoses Back pain M54.9 Lower extremity edema R60.0
== END 2024-03-18 15:10 | disposition home or self-care (01) ==
PROVIDERS: PCP Internal Medicine; Referring Provider Physician Assistant; Visit Provider Physician Assistant
DX: M54.9 Dorsalgia, unspecified (principal); R60.0 Localized edema
CPT/HCPCS: 99204

== ENCOUNTER 2024-03-18 13:10 | Outpatient (REF) | payer OTHER, SELFPAY ==
--- NOTE | ~2024-03-18 | XR_ITS ---
EXAMINATION: XR LUMBOSACRAL SPINE WITH LATERAL FLEXION AND EXTENSION VIEWS CLINICAL INFORMATION: Dorsalgia, unspecified COMPARISON: None available. TECHNIQUE: AP, lateral, lateral flexion and extension views of the lumbar spine were obtained. FINDINGS: There is S-shaped thoracolumbar scoliosis. There is left lateral subluxation of L4 on L5. There are 4 nonrib-bearing lumbar-type vertebral bodies. The height of vertebral bodies is well-maintained. There is disc space narrowing at L2-L3 and L3-L4. There is multilevel degenerative facet joint disease. There is loss of the usual lumbar lordosis which can be seen with muscle spasm. There is no instability with flexion and extension. XR/XR lumbar spine 4V min IMPRESSION: 1. Muscle spasm. 2. S-shaped thoracolumbar scoliosis. 3. Left lateral subluxation of L4 on L5. 4. Degenerative disc disease at L2-L3 and L3-L4. 5. Multilevel degenerative facet joint disease.
--- NOTE | ~2024-03-18 | XR_ITS ---
EXAMINATION: XR THORACOLUMBAR SPINE CLINICAL INFORMATION: Dorsalgia, unspecified COMPARISON: Same-day lumbar spine TECHNIQUE: Standing AP and lateral views of the thoracic spine FINDINGS: The bones are mildly diffusely demineralized. There are 12 rib bearing thoracic vertebral bodies. There is S-shaped scoliosis of the thoracolumbar spine. The height of thoracic vertebral bodies is well-maintained. There is multilevel disc space narrowing with anterior marginal osteophytes. The visualized portions of the lungs are clear. XR/XR thoracic spine 2V IMPRESSION: 1. S-shaped scoliosis of the thoracolumbar spine. 2. Multilevel degenerative disc disease.
== END 2024-03-18 13:11 | disposition home or self-care (01) ==
LOC: HO.HOSX 13:10
PROVIDERS: PCP Internal Medicine; Visit Provider Physician Assistant
DX: M54.9 Dorsalgia, unspecified (principal); R60.0 Localized edema
CPT/HCPCS: 72070; 72110; 99202

== ENCOUNTER 2024-04-12 15:19 | Outpatient (AMB) | payer OTHER, SELFPAY ==
--- NOTE | 2024-04-12 15:43 | HO.SPINEOV ---
Intake Visit Reasons: follow up appt Intake Note: Mr. Cervanets is here today for a folow up. Merchandising Internship Required: No Allergies No Known Allergies [No Known Allergies*] Allergy (Verified 03/18/24 13:17) Assessment & Plan Assessment & Plan (1) Scoliosis deformity of spine: Code(s): M41.9 - Scoliosis, unspecified Category: Medical Plan Dear colleague, On 04/12/2024, I saw for follow-up Edgardo Cervantes. He has a complex story. He developed a lumbar scoliotic curvature in a 10 month period for unknown reasons. He could no longer do his job and lost his job. The only other thing was bilateral lower leg edema that started approximately a year before the development of the deformity. On exam, the patient stands in a flexed position with a scoliotic convexity on the left side and a rotatory component. No other neurological deficits. No muscle atrophy. I told the patient that he needs to be evaluated in an academic institution as there must be an underlying reason why he developed this scoliosis. Surgically correcting the scoliosis will lead to failure if there is an underlying neurological disease. I would like to refer him to Dr. Ayon, chair of Orthopedics at [facility] for an evaluation and possible referral to other specialties before surgery is considered. Osmany Laird MD, PhD Spine Fellowship Trained Neurosurgeon Director, [facility] Coding Level of Care Code Est Pt Level 3 (87690) Diagnoses Scoliosis deformity of spine M41.9
== END 2024-04-12 16:13 | disposition home or self-care (01) ==
PROVIDERS: PCP Internal Medicine; Visit Provider Neurological Surgery
DX: M41.9 Scoliosis, unspecified (principal)
CPT/HCPCS: 99213

== ENCOUNTER → 2024-04-12 15:19 | Outpatient (BNVA) | payer OTHER, SELFPAY | PROVIDERS: PCP Internal Medicine; Visit Provider Neurological Surgery | DX: M41.9 Scoliosis, unspecified (principal) | CPT/HCPCS: 99212 ==

== ENCOUNTER → 2024-05-23 15:15 | Outpatient (BNVA) | payer OTHER, SELFPAY | PROVIDERS: PCP Internal Medicine; Visit Provider Surgery Vascular Surgery ==

== ENCOUNTER 2025-03-13 13:08 | Outpatient (AMB) | payer OTHER, SELFPAY ==
--- NOTE | 2025-03-13 13:10 | MHC.OFFVIS ---
Intake Visit Reasons: [employer]/Spine ref for LE swelling Intake Note: [employer] for bilateral LE swelling and discoloration started about 1.5 yrs ago. Pt states he gets some numbness around the ankles. Trouble Clerk Required: No Accompanied by: Self / Same As Patient Allergies No Known Allergies (No Known Allergies*) Allergy (Verified 03/13/25 13:17) HPI HPI [employer]/Spine ref for LE swelling: Details: Edgardo, a very pleasant 44yo male patient, is presenting today on a referral from spine for concerns of bilateral lower extremity discoloration and swelling. Complaints include discomfort/pain, swelling of lower extremities, cramping, fatigue, and heaviness of the lower extremities. It has been affecting their daily activities including walking, standing, and physical activity. It is noted in both legs. He currently is having issues with a sudden onset of severe scolosis, for which he was seen at [facility] and then had no follow up; we advised to call [place] for further evaluation. He states this all started >1.5y ago and noticed his legs getting discolored and swollen at the same time. He denies any injuries. He states he used to be very active but has difficulty now. He is not a diabetic. He is an everyday smoker, 1/2ppd. There is no hx of blood clots or family hx of clotting disorders. Patient denies any previous venous surgery or injections. Patient denies any history of DVT/ PE. Patient denies any history of phlebitis. Trial of compression includes - elevation helps They now present for vascular evaluation regarding their varicose veins. [facility] Medical History Dislocated shoulder Kidney calculi Social History Alcohol intake: current Alcohol intake frequency: holidays/special occasions only Patient Tobacco Use Status: Current everyday Tobacco user Substance Use Type: Marijuana Review of Systems Const Reports as per HPI and Denies weakness ENT Reports Normal hearing present and Denies dizziness Card Reports as per HPI, Denies chest pain, Denies chest pain at rest, Denies chest pain with activity, Denies dyspnea and Denies dyspnea on exertion Resp Reports as per HPI, Denies cough, Denies dyspnea and Denies dyspnea on exertion GI Reports as per HPI, Denies abdominal pain, Denies nausea and Denies vomiting Musc Denies numbness Skin/Breast Reports as per HPI, Denies erythema and Denies wounds Neuro Reports Normal hearing present, Denies dizziness, Denies numbness, Denies Sensory deficit (Neuro) and Denies weakness Psych Reports no additional complaints Endo Reports no additional complaints Physical Exam Const General: healthy appearing and no acute distress Orientation/consciousness: patient oriented x3 HEENT Head: Yes normal to inspection Ears: hearing grossly normal bilaterally Mouth: Normal oral and palatal mucosa present Resp Effort & Inspection: normal respiratory effort and able to speak in complete sentences Auscultation: clear to auscultation bilaterally Cardio Jugular venous distension: no JVD Rate: regular rate Rhythm: regular rhythm Heart sounds: S1 normal heart sound present and S2 normal heart sound present Bruits: no abdominal aortic bruits, no carotid bruits, no femoral bruits and no renal bruits Peripheral pulses: Peripheral pulses 2+ throughout GI Inspection: Yes normal to inspection Palpation (GI): No Abdominal aortic bruit present Skin General skin exam: no rashes or lesions noted Wounds: no wounds Hair: normal Neuro General: patient oriented x3 Cranial nerves: Yes Normal hearing present Cognition (Neuro): normal cognition Gait exam (Neuro): Normal gait present Motor exam (neuro): 5/5 motor strength present throughout Sensory Exam: No Sensory deficit (Neuro) Extrem Other: Bilateral lower extremities: +1/2 nonpitting edema noted. Deep erythematous discoloration/hemosiderin staining noted from the pretibial area to the ankles. No wounds noted. No varicosities or tortuosities noted. Palpable DP pulses. CEAP: C - 4 E - primary A - superficial P - reflux General: Yes normal to inspection, Yes full ROM, Yes capillary refill normal and Yes normal gait Assessment & Plan Assessment & Plan (1) Varicose veins of both lower extremities with inflammation: Code(s): I83.11 - Varicose veins of right lower extremity with inflammation; I83.12 - Varicose veins of left lower extremity with inflammation Category: Medical Plan: Edgardo is presenting today on a referral from Spine for concerns of bilateral lower extremity discomfort and swelling. He is currently being followed by [facility] for progressive scoliosis. In short, the patient has evidence of venous insufficiency. I have discussed the pathophysiology with the patient. In addition I have provided informational material regarding venous disease to the patient. We have discussed conservative measures including compression, elevation, and exercise. We were able to provide him with some compression socks today. I have taken the liberty of ordering venous insufficiency testing with the patient. They will follow up with me after testing. The patient had an opportunity to ask questions regarding the treatment plan. All questions were answered. Imaging studies, laboratory studies and physical exam results were discussed and reviewed in detail. No major barriers to understanding were identified. The patient expressed understanding and agreement with the above treatment plan. The patient is aware they should contact our office by phone for worsening of the current condition or the appearance of new symptoms. Thank you for allowing me to participate in the vascular care of this patient. If you have any questions or concerns regarding the treatment for the above condition please do not hesitate to contact me. The office telephone contact is [phone]. This note is constructed using voice recognition software. While every effort has been made to ensure accuracy, tooling manager errors may have been included. Thank you for allowing me to participate in the care of your patient. Yours sincerely, ALMAZ Lock Orders: Orders US venous duplex LE BI 1 Week I83.11 - Varicose veins of right lower extremity with inflammation, I83.12 - Varicose veins of left lower extremity with inflammation Coding Level of Care Code New Pt Level 4 (60133) Diagnoses Varicose veins of both lower extremities with inflammation I83.11; I83.12
--- OUTSIDE RECORDS SUMMARY | 2025-03-13 15:45 | XMS_ITS | Clinical Summary ---
Author Organization [address] Address [address] [place] [phone] Phone Care Team Providers Care Screw Cutter Name Role Phone Yoandy Kern MD Primary Care Provider [phone] Allergies No known active allergies Medications buPROPion XL (WELLBUTRIN XL) 150 mg 24 hr tablet Take 1 tablet (150 mg total) by mouth 1 (one) time each day. 90 tablet 1 01/30/2025 Active cholecalciferol (VITAMIN D-3) 50 mcg (2,000 unit) tablet Take 1 tablet (2,000 Units total) by mouth 1 (one) time each day. 90 tablet 3 01/30/2025 Active gabapentin (NEURONTIN) 100 mg capsule Take 1 capsule (100 mg total) by mouth 2 (two) times a day. 60 each 1 01/30/2025 Active methocarbamoL (ROBAXIN) 500 mg tablet Take 1 tablet (500 mg total) by mouth at bedtime as needed for muscle spasms. 30 tablet 3 01/30/2025 Active acetaminophen (Tylenol 8 Hour) 650 mg 8 hr tablet Take 1 tablet (650 mg total) by mouth every 8 (eight) hours if needed for mild pain. Do not crush, chew, or split. 90 tablet 3 01/30/2025 Active ibuprofen (ADVIL,MOTRIN) 600 mg tablet Take 1 tablet (600 mg total) by mouth 2 (two) times a day if needed for moderate pain (pain). 60 tablet 3 01/30/2025 Active Active Problems Problem Noted Date Diagnosed Date Kidney stones 09/24/2024 Anxiety and depression 11/01/2023 Encounters Date Type Department Care Team Description 01/30/2025 8:15 AM EDT Office Visit Adult Medicine [address] [phone] Yoandy Kern MD Other form of scoliosis of lumbar spine (Primary Dx); Chronic bilateral low back pain without sciatica; Anxiety and depression; Cigarette smoker; Weight loss; Vitamin D deficiency disease; Screening for deficiency anemia; Screening for diabetes mellitus (DM); Screening for hyperlipidemia; Screening for thyroid disorder 01/30/2025 Telephone Adult Medicine [address] [phone] Yoandy Kern MD Forms/questionnaires 01/30/2025 Telephone Adult [address] [phone] Yoandy Kern MD Forms/questionnaires (DTA) 01/30/2025 Telephone Adult [address] [phone] Yoandy Kern MD from Last 3 Months Immunizations Name Administration Dates Next Due Tdap Tetanus diptheria acell ular pertussis (Boostrix; Adacel) 7yo and older 08/06/2012 Surgical History Surgery Date Site/Laterality Comments SHOULDER SURGERY PROCEDURE: HISTORICAL SHOULDER SURGERY; COMMENT: 1998 shoulder dislocations LITHOTRIPSY PROCEDURE: HISTORICAL LITHOTRIPSY; COMMENT: renal calculi TONSILLECTOMY PROCEDURE: HISTORICAL TONSILLECTOMY Medical History Medical History Date Comments Kidney stones DX:Kidney stones Family History Medical History Relation Name Comments Hypertension Father Lung cancer Paternal Grandfather Relation Name Status Comments Brother Alive Father Mother Alive Paternal Grandfather Social History Tobacco Use Types Packs/Day Years Used Date Smoking Tobacco: Every Day Cigarettes Tobacco Cessation:Ready to Q uit: Not Asked; Counseling Given: Not Answered Alcohol Use Standard Drinks/Week Comments Yes 0 (1 standard drink = 0.6 oz pur e alcohol) Sex and Gender Information Value Date Recorded Sex Assigned at Not on file Legal Sex Male 9:38 AM EST Gender Identity Not on file Sexual Orientation Not on file Obstetrics History Last Filed Vital Signs Vital Sign Reading Time Taken Comments Blood Pressure 123/81 01/30/2025 8:13 AM EDT Pulse 96 01/30/2025 8:13 AM EDT Temperature 36.4 C (97.6 F) 01/30/2025 8:13 AM EDT Respiratory Rate 14 01/30/2025 8:13 AM EDT Oxygen Saturation - - Inhaled Oxygen Concentration - - Weight 70.8 kg (156 lb) 01/30/2025 8:13 AM EDT Height 175.3 cm (5' 9 ) 11/01/2023 12:46 PM EST Body Mass Index 23.04 11/01/2023 12:46 PM EST Plan of Treatment Upcoming Encounters Date Type Department Care Team (Late st Contact Info) Description 04/04/2025 11:15 AM EDT Office Visit Adult Medicine [address] [phone] Yoandy Kern MD [address] [place] [phone] Health Maintenance Due Date Last Done Comments Hepatitis B Vaccines (1 of 3 - 19+ 3-dose series) 1999 Pneumococcal Vaccine: Pediat rics (0 to 5 Years) and At-Risk Patients (6 to 64 Years) (1 of 2 - PCV) 1999 DTaP,Tdap,and Td Vaccines (2 - Td or Tdap) 08/06/2022 08/06/2012 Depression Screening 03/14/2023 HIV Screening 03/14/2023 Hepatitis C Screening 03/14/2023 Social Influencers of Health Screening 03/14/2023 COVID-19 Vaccine (2 - 2023-2 5 season) 2024 03/25/2021 Influenza Vaccine (Season Ended) 2025 Cholesterol Screening (Lipid Panel) 11/02/2028 11/02/2023 HIB Vaccines Aged Out No longer eligi ble based on patient's age to complete this topic HPV Vaccines Aged Out No longer eligi ble based on patient's age to complete this topic Hepatitis A Vaccines Aged Out No long er eligible based on patient's age to complete this topic IPV Vaccines Aged Out No longer eligi ble based on patient's age to complete this topic MMR Vaccines Aged Out No longer eligi ble based on patient's age to complete this topic Meningococcal ACWY Vaccine Aged Out N o longer eligible based on patient's age to complete this topic Meningococcal B Vaccine Aged Out No l onger eligible based on patient's age to complete this topic RSV Immunization Patients Un adina 20 months Aged Out No longer eligible b ased on patient's age to complete this topic Varicella Vaccines Aged Out No longer eligible based on patient's age to complete this topic Procedures Procedure Name Priority Date/Time Associated Diagnosis Comments LIPID PANEL Routine 11/02/2023 from Last 3 Months or Most Recently Relevant to Health Maintenance Results * (ABNORMAL) Lipid panel (11/02/2023) LDL/HDL Ratio 4 0 - 4 Triglycerides 66 0 - 150 mg/dL Cholesterol 180 0 - 200 mg/dL HDL 51 >=40 mg/dL LDL Cholesterol 116(A) 0 - 100 mg/dL Blood Venous blood specimen / Unknown Historical Provider LAB BLOOD ORDERABLES Charito l Result from Last 3 Months or Most Recently Relevant to Health Maintenance [place] [address] [place] [address] [employer] Care Teams Screw Cutter Relationship Specialty Start Date End Date Yoandy Kern MD [address] [place] [phone] PCP - General 07/22/22
== END 2025-03-13 13:43 | disposition home or self-care (01) ==
LOC: HO.HVS 13:08
PROVIDERS: PCP Internal Medicine; Visit Provider Physician Assistant Surgical
DX: I83.11 Varicose veins of right lower extremity with inflammation (principal); I83.12 Varicose veins of left lower extremity with inflammation
CPT/HCPCS: 99204

== ENCOUNTER → 2025-03-13 13:08 | Outpatient (BNVA) | payer OTHER, SELFPAY | PROVIDERS: PCP Internal Medicine; Visit Provider Physician Assistant Surgical | DX: I83.11 Varicose veins of right lower extremity with inflammation (principal); I83.12 Varicose veins of left lower extremity with inflammation | CPT/HCPCS: 99202 ==

== ENCOUNTER 2025-04-18 10:19 | Outpatient (REF) | payer OTHER, SELFPAY ==
--- NOTE | ~2025-04-18 | US_ITS ---
EXAMINATION: US LOWER EXTREMITY VENOUS (REFLUX EXAM), BILATERAL CLINICAL INFORMATION: I83.11 - Varicose veins of right lower extremity with inflammation COMPARISON: None. TECHNIQUE: Color flow triplex imaging and compression Doppler was performed to evaluate both the deep and the superficial systems bilaterally. To evaluate the superficial system, the examination was performed in the upright position. Color-flow Doppler ultrasound and compression ultrasound were utilized. In addition, maneuvers were utilized to demonstrate reflux. FINDINGS: 1. DEEP VENOUS ULTRASOUND OF THE RIGHT LOWER EXTREMITY: Common Femoral Vein: Compressible, normal respiratory variation and augmented flow. Femoral Vein: Compressible, normal color flow and augmentation. Popliteal Vein: Compressible, normal augmentation. Deep Reflux: There is no evidence of reflux in the deep system in either the common femoral vein, superficial femoral or the popliteal vein. 2. SUPERFICIAL ULTRASOUND WITH DOPPLER OF RIGHT LOWER EXTREMITY: GREAT SAPHENOUS VEIN: Saphenofemoral Junction: 0.7 cm; Reflux: 0 ms Proximal Thigh: 0.3 cm; Reflux: 0 ms Mid Thigh: 0.3 cm; Reflux: 0 ms Distal Thigh: 0.3 cm; Reflux: 0 ms At Knee: 0.2 cm; Reflux: 0 ms Below Knee/Proximal Calf: 0.2 cm; Reflux: 0 ms Mid Calf: 0.3 cm; Reflux: 0 ms Ankle/Distal Calf: 0.3 cm; Reflux: 0 ms Medial accessory GREAT SAPHENOUS VEIN: Saphenofemoral Junction: 0.5 cm; Reflux: 0 ms SMALL SAPHENOUS VEIN: Drainage: Extension Saphenopopliteal Junction: 0.2 cm; Reflux: 0 ms Mid calf: 0.1 cm; Reflux: 0 ms Distal: 0.2 cm; Reflux: 0 ms VEIN OF GIACOMINI: Not documented PERFORATORS: Location: Greater saphenous vein, proximal calf Size: 0.2 cm Reflux: 0 ms Location: Greater saphenous vein into varicosity, proximal calf Size: 0.2 cm Reflux: 0 ms Location: Greater saphenous vein, mid calf Size: 0.3 cm Reflux: 0 ms Location: Small saphenous vein, midcalf Size: 0.1 cm Reflux: 0 ms VARICOSITIES > 3mm: Location: None Imaged 3. DEEP VENOUS ULTRASOUND OF THE LEFT LOWER EXTREMITY: Common Femoral Vein: Compressible, normal respiratory variation and augmented flow. Femoral Vein: Compressible, normal color flow and augmentation. Popliteal Vein: Compressible, normal augmentation. Deep Reflux: There is no evidence of reflux in the deep system in either the common femoral vein, superficial femoral or the popliteal vein. 4. SUPERFICIAL ULTRASOUND WITH DOPPLER OF LEFT LOWER EXTREMITY: GREAT SAPHENOUS VEIN: Saphenofemoral Junction: 0.4 cm; Reflux: 0 ms Proximal Thigh: 0.2 cm; Reflux: 0 ms Mid Thigh: 0.2 cm; Reflux: 0 ms Distal Thigh: 0.2 cm; Reflux: 0 ms At Knee: 0.2 cm; Reflux: 0 ms Below Knee/Proximl calf: 0.2 cm; Reflux: 0 ms Mid Calf: 0.1 cm; Reflux: 0 ms Distal Calf/Ankle: 0.3 cm; Reflux: 0 ms Lateral accessory GREAT SAPHENOUS VEIN: Saphenofemoral Junction: 0.2 cm; Reflux: 0 ms SMALL SAPHENOUS VEIN: Duplicated in the mid calf Drainage: Popliteal vein Saphenopopliteal Junction: 0.2 cm; Reflux: 0 ms Mid calf: 0.2 cm; Reflux: 0 ms Distal calf: 0.2 cm; Reflux: 0 ms VEIN OF GIACOMINI: None imaged PERFORATORS: Location: Greater saphenous vein, proximal thigh Size: 0.2 cm Reflux: 0 ms Location: Greater saphenous vein, proximal calf Size: 0.2 cm Reflux: 0 ms Location: Greater saphenous vein, mid calf Size: 0.3 cm Reflux: 0 ms VARICOSITIES > 3mm: Location: Greater saphenous vein, proximal thigh Size: 0.3 cm Reflux: 0 ms US/US venous duplex LE BI IMPRESSION: Right: No venous reflux is demonstrated. Left: No venous reflux is demonstrated. Electronically signed by: Yordan Hutchins MD 04/18/2025 11:36 AM EDT
--- OUTSIDE RECORDS SUMMARY | 2025-04-18 10:29 | XMS_ITS | Clinical Summary ---
Author Organization [facility] [address] [place] [address] Address [address] [place] [address] Phone Care Team Providers Care Burial Needs Salesperson Name Role Phone Yoandy Kern MD Primary Care Provider [phone] Allergies No known active allergies Medications buPROPion XL (WELLBUTRIN XL) 150 mg 24 hr tablet Take 1 tablet (150 mg total) by mouth 1 (one) time each day. 90 tablet 1 5 Active cholecalciferol (VITAMIN D-3) 50 mcg (2,000 unit) tablet Take 1 tablet (2,000 Units total) by mouth 1 (one) time each day. 90 tablet 3 5 Active methocarbamoL (ROBAXIN) 500 mg tablet Take 1 tablet (500 mg total) by mouth at bedtime as needed for muscle spasms. 30 tablet 3 5 Active acetaminophen (Tylenol 8 Hour) 650 mg 8 hr tablet Take 1 tablet (650 mg total) by mouth every 8 (eight) hours if needed for mild pain. Do not crush, chew, or split. 90 tablet 3 5 Active ibuprofen (ADVIL,MOTRIN) 600 mg tablet Take 1 tablet (600 mg total) by mouth 2 (two) times a day if needed for moderate pain (pain). 60 tablet 3 5 Active omeprazole (PriLOSEC) [address] capsule Take 1 capsule (40 mg total) by mouth 1 (one) time each day. Do not crush or chew. 90 each 1 5 Active gabapentin (NEURONTIN) 100 mg capsule 100 mg in AM, 100 mg at noon time and 200 mg at night 120 each 4 5 Active gabapentin (NEURONTIN) 100 mg capsule Take 1 capsule (100 mg total) by mouth 2 (two) times a day. 60 each 1 5 04/04/20 25 Discontinu ed(Reorder ) Active Problems Problem Noted Date Diagnosed Date Scoliosis of lumbar spine 04/03/2025 Varicose veins of both lower extremities 025 Chronic bilateral low back pain without sciatica 04/03/2025 Kidney stones 09/24/2024 Anxiety and depression 11/01/2023 Encounters Date Type Department Care Team Description 04/04/2025 11:15 AM EDT Office Visit Adult Medicine [address] [phone] Yoandy Kern MD Other form of scoliosis of lumbar spine (Primary Dx); Chronic bilateral low back pain without sciatica; Anxiety and depression; Varicose veins of both lower extremities, unspecified whether complicated; Gastroesophageal reflux disease without esophagitis; Screening for colorectal cancer 04/04/2025 Telephone Adult [address] [phone] Yoandy Kern MD 01/30/2025 8:15 AM EDT Office Visit [address] [phone] Yoandy Kern MD Other form of scoliosis of lumbar spine (Primary Dx); Chronic bilateral low back pain without sciatica; Anxiety and depression; Cigarette smoker; Weight loss; Vitamin D deficiency disease; Screening for deficiency anemia; Screening for diabetes mellitus (DM); Screening for hyperlipidemia; Screening for thyroid disorder 01/30/2025 Telephone Adult Medicine [address] [phone] Yoandy Kern MD Forms/questionnaires 01/30/2025 Telephone Adult [address] [phone] Yoandy Kern MD Forms/questionnaires (DTA) 01/30/2025 Telephone Adult Medicine [address] [phone] Yoandy Kern MD from Last 3 Months [...] Used Date Smoking Tobacco: Every Day Cigarettes Alcohol Use Standard Drinks/Week Comments Yes 0 (1 standard drink = 0.6 oz pur e alcohol) Housing Instability Answer Date Recorde d Are you worried that in the next 2 months you may not have stable housing? No 03/31/2025 Food Access & Nutrition Answer Date Rec orded Do you have access to a vari ety of food including fruits and vegetables? Yes 03/31/2025 Access to Healthcare Answer Date Record ed Within the last 3 months, ho w many times did you visit the emergency department for your medical care? 0 03/31/2025 Health Literacy Answer Date Recorded How often do you need to hav e someone help you when you read instructions, pamphlets, or other written material from your doctor or pharmacy? Never 03/31/2025 Caregiver: How often do you need to have someone help you when you read instructions, pamphlets, or other written material from your doctor or pharmacy? Not on file 03/31/2025 Financial Risk Answer Date Recorded How hard is it for you to pa y for the very basics like food, housing, medical care, and air conditioning / heating? Hard 03/31/2025 Transportation Answer Date Recorded Has the lack of transportati on kept you from meetings, work, or from getting things needed for daily living? No Has the lack of transportati on kept you from medical appointments or from getting medications? No 03/31/2025 Social Isolation Answer Date Recorded How often do you feel lonely or isolated from those around you? Sometimes 03/31/2025 Food Risk Answer Date Recorded Within the past 12 months we worried whether our food would run out before we got money to buy more. Never true 03/31/2025 Within the past 12 months th e food we bought just didn't last and we didn't have money to get more. Never true 03/31/2025 Dependent Care Answer Date Recorded Do you need help finding or paying for care for your loved ones. For example, child advocate or elderly care for an older adult? No 03/31/2025 Education Answer Date Recorded Do you think completing more education or training, like finishing a GED, going to college, or learning a trade, would be helpful for you? N/A 03/31/2025 Employment and Income Answer Date Recor ded During the last four weeks, have you been actively looking for work? No 03/31/2025 Living Situation Answer Date Recorded What is your living situation? 0 03/31/2025 Sex and Gender Information Value Date Recorded Sex Assigned at Not on file Legal Sex Male 9:38 AM EST Gender Identity Not on file Sexual Orientation Not on file Obstetrics History Last Filed Vital Signs Vital Sign Reading Time Taken Comments Blood Pressure 116/72 04/04/2025 11:22 AM EDT Pulse 84 04/04/2025 11:22 AM EDT Temperature 36.5 C (97.7 F) 04/04/2025 11:22 AM EDT Respiratory Rate 18 04/04/2025 11:22 AM EDT Oxygen Saturation - - Inhaled Oxygen Concentration - - Weight 71.2 kg (157 lb) 04/04/2025 11:22 AM EDT Height 175.3 cm (5' 9 ) 04/04/2025 11:22 AM EDT Body Mass Index 23.18 04/04/2025 11:22 AM EDT Plan of Treatment Upcoming Encounters Date Type Department Care Team (Late st Contact Info) Description 08/05/2025 11:00 AM EST Office Visit Adult Medicine [facility] [address] [place] [phone] Yoandy Kern MD [address] [place] [phone] Health Maintenance Due Date Last Done Comments Hepatitis B Vaccines (1 of 3 - 19+ 3-dose series) 1999 Pneumococcal Vaccine: Pediat rics (0 to 5 Years) and At-Risk Patients (6 to 49 Years) (1 of 2 - PCV) 1999 DTaP,Tdap,and Td Vaccines (2 - Td or Tdap) 08/06/2022 08/06/2012 HIV Screening 03/14/2023 Hepatitis C Screening 03/14/2023 COVID-19 Vaccine (2 - 2023-2 5 season) 2024 03/25/2021 Influenza Vaccine (#1) 2025 Social Influencers of Health Screening 03/31/2026 03/31/2025 Cholesterol Screening (Lipid Panel) 11/02/2028 11/02/2023 Depression Screening Completed 03/31/2025 HIB Vaccines Aged Out No longer eligi [...] mg/dL Blood Venous blood specimen / Unknown us Historical Provider LAB BLOOD ORDERABLES Charito parminder Result from Last 3 Months or Most Recently Relevant to Health Maintenance Insurance PLAN Care Teams Burial Needs Salesperson Relationship Specialty Start Date End Date Yoandy Kern MD [address] [place] [phone] PCP - General 07/22/22
--- OUTSIDE RECORDS SUMMARY | 2025-04-18 10:29 | XMS_ITS | Clinical Summary ---
Author Organization [facility] Address [address] [place] [address] Care Team Providers Care Benefits Consultant Name Role Phone Yoandy Kern Primary Care Provider [phone] Allergies No known active allergies Medications No known medications Active Problems Problem Noted Date Diagnosed Date Other idiopathic scoliosis, thoracolumbar region 06/04/2024 Social History Tobacco Use Types Packs/Day Years Used Date Smoking Tobacco: Never Assessed Sex and Gender Information Value Date Recorded Sex Assigned at Male 06/04/2024 3:28 PM EDT Legal Sex Male 4:23 PM EDT Gender Identity Not on file Sexual Orientation Not on file Plan of Treatment Health Maintenance Due Date Last Done Comments HIV Screening 1980 Hepatitis C Screening 1980 Varicella Vaccines (1 of 2 - 13+ 2-dose series) 1993 Hepatitis B Vaccines (1 of 3 - 19+ 3-dose series) 1999 DTaP,Tdap,and Td Vaccines (2 - Td or Tdap) 08/06/2022 08/06/2012 COVID-19 Vaccine (2 - 2023-2 5 season) 2024 03/25/2021 Alcohol/Substance Use Screening 09/18/2024 Depression Screening and Follow-Up 09/18/2024 Social Drivers of Health Marta ual Screening 09/18/2024 Influenza Vaccine (#1) 2025 RSV Vaccine (60+ years old a nd patients) (1 - 1-dose 75+ series) 2055 Pneumococcal Vaccine: Pediat asael (0-5 Years) and At-Risk Patients (6-50 Years) Aged Out No longer eligible b ased on patient's age to complete this topic Care Teams Benefits Consultant Relationship Specialty Start Date End Date Erlin Yoandy [address] [place] [id number] PCP - General 06/04/24
--- OUTSIDE RECORDS SUMMARY | 2025-04-18 10:29 | XMS_ITS ---
Author Name [facility] Organization Unknown Care Team Organization Name Specialty Phone Email Start Date End Da te [facility] Olvin Clarke Primary Care 01/23/202305/06
== END 2025-04-18 10:20 | disposition home or self-care (01) ==
LOC: HO.US 10:19
PROVIDERS: PCP Internal Medicine; Visit Provider Physician Assistant Surgical
DX: I83.11 Varicose veins of right lower extremity with inflammation (principal); I83.12 Varicose veins of left lower extremity with inflammation
CPT/HCPCS: 93970

== ENCOUNTER → 2025-04-18 10:23 | Outpatient (BNV) | payer OTHER, SELFPAY | PROVIDERS: PCP Internal Medicine; Visit Provider Radiology Diagnostic Radiology | DX: I83.11 Varicose veins of right lower extremity with inflammation (principal) | CPT/HCPCS: 93970 ==